=== PATIENT | male | born 1980 | race Caucasian/White ===

== ENCOUNTER → 2020-02-21 | Outpatient (CLI) | payer SELFPAY | LOC: M LABSMTC 13:41 | PROVIDERS: ATTEND Pediatrics | DX: Z20.828 Contact with and (suspected) exposure to other viral communicable diseases (principal) ==

== ENCOUNTER → 2021-02-10 | Outpatient (REF) | LOC: M LABSMTC 11:54 | PROVIDERS: ATTEND Pediatrics | DX: Z20.822 Contact with and (suspected) exposure to COVID-19 (principal) ==

== ENCOUNTER 2022-10-31 08:23 | Emergency (ER) | payer OTHER, SELFPAY ==
[~2022-10-31] VITALS: Ht 180.3 cm; Wt 77.3 kg
[2022-10-31 08:24] VITALS: BP 122/79; TEMP 98.1; O2SAT 98
== END 2022-10-31 11:18 | disposition home or self-care (01) ==
LOC: M ED 08:23
DX: S63.502A Unspecified sprain of left wrist, initial encounter (principal); X50.0XXA Overexertion from strenuous movement or load, initial encounter; Y92.009 Unspecified place in unspecified non-institutional (private) residence as the place of occurrence of the external cause